=== PATIENT | female | born 2000 | race Caucasian/White ===

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

== ENCOUNTER 2022-04-21 14:20 | Inpatient (IN) | payer SELFPAY ==
[~2022-04-21 14:20] MED LIST changes: +CEPH500 PO
[2022-04-21 15:05] LABS: BASOPHILS ABSOLUTE AUTO 0.07 K/mm3 (0.00-0.23); BASOPHILS PERCENT AUTO 0 % (0-2); EOSINOPHILS ABSOLUTE AUTO 0.01 K/mm3 (0.00-0.68); EOSINOPHILS PERCENT AUTO 0 % (0-6); Hematocrit 40.3 % (33.0-51.0); Hemoglobin 13.1 g/dL (11.5-16.0); IMMATURE GRAN ABSOLUTE AUTO 0.28 K/mm3 (0.00-0.10); IMMATURE GRAN PERCENT AUTO 1 % (0-1); LYMPHOCYTES ABSOLUTE AUTO 1.63 K/mm3 (0.84-5.20); LYMPHOCYTES PERCENT AUTO 6 % (21-46); MONOCYTES ABSOLUTE AUTO 1.33 K/mm3 (0.16-1.47); MONOCYTES PERCENT AUTO 5 % (4-13); Mean Corpuscular HGB 27.3 pg (26.0-34.0); Mean Corpuscular HGB Conc 32.5 g/dL (31.5-36.5); Mean Corpuscular Volume 84 fL (80-100); Mean Platelet Volume 9.6 fL (9.1-12.4); NEUTROPHILS ABSOLUTE AUTO 24.42 K/mm3 (1.96-9.15); NEUTROPHILS PERCENT AUTO 88 % (41-73); Platelet Count 298 K/mm3 (150-400); RDW Coefficient Variation 12.9 % (11.7-14.2); RDW Standard Deviation 39.3 fL (35.1-46.3); Red Blood Cell Count 4.79 M/mm3 (3.80-5.20); White Blood Cell Count 27.74 K/mm3 (4.00-11.30)
[2022-04-21 15:21] LABS: Alanine Aminotransfer (ALT/SGP 40 U/L (12-78); Albumin, Blood 3.3 g/dL (3.4-5.0); Albumin/Globulin Ratio 0.8 (0.8-1.8); Alk Phos 88 U/L (50-136); Anion Gap 5 mmol/L (6-16); Aspartate Aminotrans (AST/SGOT 34 U/L (12-37); Beta HCG, Quantitative, Serum <1 mIU/mL (0-3); Bilirubin, Total 0.7 mg/dL (0.1-1.0); Blood Urea Nitrogen 9 mg/dL (8-24); Bun/Creatinine Ratio 13.1 (12.0-20.0); CO2, Blood 26 mmol/L (21-32); Calcium, Blood 8.7 mg/dL (8.5-10.1); Chloride, Blood 99 mmol/L (98-108); Creatinine, Blood 0.69 mg/dL (0.40-1.00); Globulin, Blood 4.3 g/dL (2.2-4.0); Glomerular Filtration Rate 125 (60-); Glucose, Blood 98 mg/dL (70-99); Sodium, Blood 130 mmol/L (136-145); Total Protein, Blood 7.6 g/dL (6.4-8.2)
[2022-04-21 15:52] LABS: Influenza A, PCR NEGATIVE (NEGATIVE); Influenza B, PCR NEGATIVE (NEGATIVE); Resp Syncytial Virus, PCR NEGATIVE (NEGATIVE); SARS-Cov-2 (COVID-19) PCR, MMC NEGATIVE (NEGATIVE)
[2022-04-21 17:37] LABS: Source, Urine Clean Catch
[2022-04-21 17:57] LABS: Appearance, Urine Hazy (Clear); Bilirubin, Urine Neg (Neg); Blood, Urine 2+ (Neg); Color, Urine Yellow (P-Yellow); Glucose Qualitative, Urine Neg (Neg); Ketones, Urine 2+ (Neg); Leukocyte Esterase, Urine 1+ (Neg); Nitrite, Urine Pos (Neg); Protein, Urine 3+ (Neg); Urobilinogen, Urine 2+ (Normal)
[2022-04-21 18:14] LABS: Bacteria Many /hpf; Mucus Heavy (0-Heavy); Red Blood Cells, Urine 0-2 /hpf (0-2); Squamous Epithelial Cells Mod /hpf (Few)
[2022-04-21 18:49] LABS: U Amphetamine Screen DETECTED; U Barbituate Screen Not Detected; U Benzodiazapine Screen Not Detected; U Buprenorphine Screen Not Detected; U Cannabinoids Screen Not Detected; U Cocaine Screen Not Detected; U Methadone Screen Not Detected; U Methamphetamine Screen DETECTED; U Opiates Screen Not Detected; U Oxycodone Screen Not Detected; U Phencyclidine Screen Not Detected; U Propoxyphene Screen Not Detected
--- NOTE | 2022-04-21 22:41 | NUR ---
ARRIVAL PT ARRIVED TO THE UNIT IN NO DISTRESS. VSS, HYPOTENSION AND TACHYCARDIA NOTED. PT ASYMPTOMATIC, IV FLUIDS INFSING. PARTNER ARRIVED TO BE AT BEDSIDE, INFORMED OF BEHAVIOR POLICY AND EXPECTATIONS. GIVEN PERMISSION TO STAY AT BEDSIDE LONG THE PT IS OKAY WITH IT AND NO ISSUES ARISE. ADMISSION COMPLETED. THE PATIENT IS CURRENTLY SLEEPING, IN NO DISTRESS. PATIENT AND PARTNER EDUCATED ON HOW TO USE THE CALL LIGHT. BED ALARM ON FOR SAFETY.
--- NOTE | 2022-04-22 05:09 | NUR ---
PT NEW ADMIT TO THE FLOOR, SEE PREVEIOUS NOTE. HYPOTENTION NOTED ON PTS VS, HOSPITALIST CALLED AND WAS GIVEN AN ORDER FOR 500 ML BOLUS AND THEN TO CONTINUE MAITENENCE FLUIDS AT 100 MLS/HR. PLAN TO REEVALUATE AFTER THE BOLUS. PT SLEPT ON AND OFF T/O THE NIGHT. PT REMAINED INCONTINENT T/O THE NIGHT AND REFUSED TO GET OOB THIS AM TO USE THE BATHROOM, THEREFORE ATTENDS WERE CHANGED IN THE BED. ATTENDS NOTED TO BE FULLY SATURATED WITH YELLOW FOUL URINE. PT TOLLERATED PO INTAKE T/O THE NIGHT W/O N/V/D. MEDICATED FOR BACK PAIN WITH TORADOL. TELE IN PLACE, PT STARTED THE NIGHT BEING TACHYCARDIAC AND IS NOW SR 80'S. THE PATIENT IS CURRENTLY SLEEPING, PARTNER AT BEDSIDE, BED ALARM ON FOR SAFETY, CALL LIGHT IN REACH.
[2022-04-22 05:16] LABS: BASOPHILS ABSOLUTE AUTO 0.05 K/mm3 (0.00-0.23); BASOPHILS PERCENT AUTO 0 % (0-2); EOSINOPHILS ABSOLUTE AUTO 0.02 K/mm3 (0.00-0.68); EOSINOPHILS PERCENT AUTO 0 % (0-6); Hematocrit 33.1 % (33.0-51.0); Hemoglobin 10.8 g/dL (11.5-16.0); IMMATURE GRAN PERCENT AUTO 1 % (0-1); LYMPHOCYTES ABSOLUTE AUTO 2.27 K/mm3 (0.84-5.20); LYMPHOCYTES PERCENT AUTO 12 % (21-46); MONOCYTES ABSOLUTE AUTO 1.24 K/mm3 (0.16-1.47); MONOCYTES PERCENT AUTO 7 % (4-13); Mean Corpuscular HGB 27.8 pg (26.0-34.0); Mean Corpuscular HGB Conc 32.6 g/dL (31.5-36.5); Mean Corpuscular Volume 85 fL (80-100); Mean Platelet Volume 9.9 fL (9.1-12.4); NEUTROPHILS ABSOLUTE AUTO 15.44 K/mm3 (1.96-9.15); NEUTROPHILS PERCENT AUTO 80 % (41-73); Platelet Count 205 K/mm3 (150-400); RDW Coefficient Variation 12.9 % (11.7-14.2); RDW Standard Deviation 39.8 fL (35.1-46.3); Red Blood Cell Count 3.89 M/mm3 (3.80-5.20); White Blood Cell Count 19.22 K/mm3 (4.00-11.30)
[2022-04-22 05:54] LABS: Albumin, Blood 2.4 g/dL (3.4-5.0); Albumin/Globulin Ratio 0.7 (0.8-1.8); Bilirubin, Total 0.3 mg/dL (0.1-1.0); Bun/Creatinine Ratio 19.1 (12.0-20.0); Calcium, Blood 7.7 mg/dL (8.5-10.1); Creatinine, Blood 0.52 mg/dL (0.40-1.00); Globulin, Blood 3.6 g/dL (2.2-4.0); Potassium, Blood 3.4 mmol/L (3.5-5.5)
--- NOTE | 2022-04-22 06:06 | NUR ---
BP MANAGEMENT CALL PLACED TO HOSPITALIST ABPUT PTS BP OF 82/42, MAP 63 AND PULSE OF 82. PT HAS BECOME LETHARGIC AND ONLY RESPONDS TO BEING SHAKEN AND TALKED LOUDLY TO. ORDER OBTAINED FOR ANOTHER BOLUS OF 250 ML LR, AND KCL 20 MEQ TO BE INFUSED AFTER THE LR BOLUS. HOSPITALIST REQUESTED FOR BP TO BE MANUALLY RECHECKED AND TO BE UPDATED ON BP AFTER THE BOLUS.
[2022-04-22 07:32] LABS: Base Excess Venous -0.6 mmol/L; Bicarbonate Venous 23.9 mmol/L (24.0-30.0); PCO2 Venous 42.1 mmHg (38-42); pH Blood Venous 7.38 (7.34-7.37)
--- NOTE | 2022-04-22 09:04 | NUR ---
PT PULLED IV AND GOT HERSELF INTO THE SHOWER. PT MICHAEL PO, ALERT & ORIENTED X4, VOIDING WELL/BM, AMB SBA FOR IV LINE, UP TO CHAIR FOR BREAKFAST, VSS/RA. BOYFRIEND AT BEDSIDE. TELEPHONE CALL WITH HOSPITALIST TO INFORM THAT PT REP SHE WILL BE LEAVING AMA WHEN SHE FINISHES WITH SHOWER. NO NEW ORDERS RECEIVED.
--- NOTE | 2022-04-22 10:45 | NUR ---
PT SIGNED A TREATMENT CONTRACT FOR BEHAVIORS
--- NOTE | 2022-04-22 11:03 | NUR ---
HOSPITALIST BEDSIDE, WILL PUT IN ORDERS FOR DISCHARGE
[2022-04-22] MEDS ORDERED: DOXY100 PO (11:33)
[2022-04-22] MEDS ORDERED: CEFD300 PO (11:33)
--- NOTE | 2022-04-22 13:00 | NUR ---
DISCHARGE SUMMARY PT A&OX4, VSS/RA, MICHAEL PO, VOIDING WELL, AMB INDEPENDENT IN ROOM/UP TO CHAIR/SHOWERED, PULLED IV AND GOT HERSELF INTO THE SHOWERED/BRUSHED TEETH AND DRESSED SELF. PT WAS VERBALLY AGRESSIVE AND YELLING OFF/ON - INITIALLY PT WOULD CALM DOWN, BUT BECAME UNCONTROLLABLE AND PATIENT ADVOCATE/ LEATHER POLISHER/SECURITY SIGNED BEHAVIOR CONTRACT WITH PT, AND THEN HOSPITALIST DC'D ON ORAL MEDS (FAXED TO [facility]). DC INS PROVIDED TO PT, PT REP UNDERSTANDING THE NEED TO TAKE MEDS TO CONTINUE TREATMENT. PT REF KDUR EVEN AFTER EDU THAT K WAS LOW AND MED TREATMENT NEEDED/ORDERED. ONCE PT WAS IN WC TO BE TAKEN OUT WITH ALL PERSONAL POSSESSIONS/DC PACKET TO GO HOME WITH FRIEND, PT APOLOGIZED FOR HER BEHAVIOR.
== END 2022-04-22 11:45 | disposition home or self-care (01) | DRG 871 ==
LOC: ER 14:20 → SURS 20:18
PROVIDERS: Emergency Medicine; Family Medicine; Physician Assistant; ADMIT Internal Medicine
DX: A41.9 Sepsis, unspecified organism (principal); J18.9 Pneumonia, unspecified organism; E87.29 Other acidosis; N12 Tubulo-interstitial nephritis, not specified as acute or chronic; E87.1 Hypo-osmolality and hyponatremia; F15.10 Other stimulant abuse, uncomplicated; Z20.822 Contact with and (suspected) exposure to COVID-19; B96.20 Unspecified Escherichia coli [E. coli] as the cause of diseases classified elsewhere; F17.210 Nicotine dependence, cigarettes, uncomplicated; Z79.2 Long term (current) use of antibiotics
CPT/HCPCS: 0241U; 36415; 71046; 74177; 80053; 81001; 82803; 83605; 83690; 83880; 84702; 85025; 87086; 87186; 96361; 96365-59; 96366; 96375; 99285-25; A9270; J0456; J0696; J1200; J1885; J3480; J7030; J7050; J7120; P9612; Q9967

== ENCOUNTER 2024-01-10 17:21 | Inpatient (IN) | payer SELFPAY ==
[~2024-01-10] VITALS: Ht 167.6 cm; Wt 72.2 kg
[~2024-01-10 17:21] MED LIST changes: +CEFD300 PO; +DOXY100 PO
[2024-01-10 17:34] VITALS: BP 123/72
[2024-01-10 19:22] VITALS: BP 110/63
[2024-01-10 22:31] LABS: U Amphetamine Screen DETECTED; U Barbituate Screen Not Detected; U Benzodiazapine Screen Not Detected; U Buprenorphine Screen Not Detected; U Cannabinoids Screen Not Detected; U Cocaine Screen Not Detected; U Methadone Screen Not Detected; U Methamphetamine Screen DETECTED; U Opiates Screen Not Detected; U Oxycodone Screen Not Detected; U Phencyclidine Screen Not Detected
--- NOTE | 2024-01-10 23:00 | NUR ---
THIS RN CALLED BY CPS WORKER LAURA WOLFE. THIS RN GAVE [facility] WORKER HISTORY OF PT- PT BROUGHT IN BY AMBULANCE DUE TO NEIGHBOR CALLING 911 AFTER SEING PT'S BELLY GROW AND PT HUNCHED OVER IN PAIN. PT DOES NOT BELIEVE THAT SHE IS PREGANANT.PT AND BOYFRIEND KRISTIE ARE HOMELESS BUT STAYING ON FRIENDS COUCH FOR LAST MONTH. PT'S BOYFRIEND THINKS SHE LAST USED METH 2 DAYS AGO. PT HAS POSITIVE URINE TOX TODAY FOR METH AND AMPHETAMINES. KRISTIE'S SISTER- MANPREET STATED THAT SHE WOULD BE WILLING TO TAKE BABY BUT ISNT SURE IF SHE WOULD WANT TO IF BABY ISNT BLAN[place]. PT UNSURE IF KRISTIE IS FOB. CASE KOFFI WANTS TO BE CALLED ONCE BABY IS BORN.
[2024-01-10] MEDS ORDERED: OxyCODONE 5 mg/Acetamin 325 mg TABLET PO PRN (23:05)
[2024-01-10] MEDS ORDERED: Promethazine HCl 25 MG Tab PO PRN (23:05)
[2024-01-10 23:17] LABS: Bacterial Vaginosis PCR Negative (NEGATIVE); Candida glabrata-krusei, PCR NOT DETECTED (NOT DETECT)
[2024-01-10 23:18] LABS: BASOPHILS ABSOLUTE AUTO 0.01 K/mm3 (0.00-0.23); BASOPHILS PERCENT AUTO 0 % (0-2); EOSINOPHILS ABSOLUTE AUTO 0.03 K/mm3 (0.00-0.68); EOSINOPHILS PERCENT AUTO 0 % (0-6); Hematocrit 29.7 % (33.0-51.0); Hemoglobin 9.7 g/dL (11.5-16.0); IMMATURE GRAN ABSOLUTE AUTO 0.05 K/mm3 (0.00-0.10); IMMATURE GRAN PERCENT AUTO 1 % (0-1); LYMPHOCYTES ABSOLUTE AUTO 1.97 K/mm3 (0.84-5.20); LYMPHOCYTES PERCENT AUTO 22 % (21-46); MONOCYTES ABSOLUTE AUTO 0.83 K/mm3 (0.16-1.47); MONOCYTES PERCENT AUTO 9 % (4-13); Mean Corpuscular HGB 25.2 pg (26.0-34.0); Mean Corpuscular HGB Conc 32.7 g/dL (31.5-36.5); Mean Corpuscular Volume 77 fL (80-100); Mean Platelet Volume 10.3 fL (9.1-12.4); NEUTROPHILS ABSOLUTE AUTO 5.99 K/mm3 (1.96-9.15); NEUTROPHILS PERCENT AUTO 68 % (41-73); Platelet Count 232 K/mm3 (150-400); RDW Coefficient Variation 13.5 % (11.7-14.2); Red Blood Cell Count 3.85 M/mm3 (3.80-5.20); White Blood Cell Count 8.88 K/mm3 (4.00-11.30)
[2024-01-10 23:29] LABS: Candida Group, PCR DETECTED (NOT DETECT)
[2024-01-10 23:44] LABS: Source, Urine Clean Catch
[2024-01-10 23:51] LABS: Bilirubin, Urine Neg (Neg); Blood, Urine 4+ (Neg); Glucose Qualitative, Urine Neg (Neg); Ketones, Urine Neg (Neg); Leukocyte Esterase, Urine 1+ (Neg); Nitrite, Urine Neg (Neg); Protein, Urine 3+ (Neg); Specific Gravity, Urine 1.025 (1.003-1.022); Urobilinogen, Urine NORM (Normal)
[2024-01-11 00:02] LABS: Appearance, Urine Hazy (Clear); Bacteria Many /hpf; Color, Urine Yellow (P-Yellow); Red Blood Cells, Urine 50-100 /hpf (0-2); Squamous Epithelial Cells Few /hpf (Few)
[2024-01-11] MEDS ORDERED: Methylergonovine Maleate 0.2MG / ML 1ML Amp IM PRN (00:30)
[2024-01-11] MEDS ORDERED: Penicillin G Potassium 5,000,000 UNITS in NS 250 ML IV ONE (00:30)
[2024-01-11] MEDS ORDERED: Oxytocin 10 Unit / ML Vial IM PRN (00:30)
[2024-01-11] MEDS ORDERED: Misoprostol 200 MCG Tab PR PRN (00:30)
[2024-01-11] MEDS ORDERED: Lactated Ringer's 1,000 ML IV SCH ×2 (00:30)
[2024-01-11] MEDS ORDERED: Ondansetron HCl 2 MG / ML 2ML Vial IV PRN (00:30)
[2024-01-11] MEDS ORDERED: Acetaminophen 500 MG Tab PO PRN (00:30)
[2024-01-11] MEDS ORDERED: Lactated Ringer's 1,000 ML IV PRN (00:30)
[2024-01-11] MEDS ORDERED: Misoprostol 200 MCG Tab BC PRN (00:30)
[2024-01-11] MEDS ORDERED: FentaNYL 2mcg/ml-Bup 0.1% Epd 250 ML EPI PRN (00:30)
[2024-01-11] MEDS ORDERED: FentaNYL Citrate 50 MCG/ML 2 ML Injection IV PRN (00:30)
[2024-01-11] MEDS ORDERED: Carboprost Tromethamine 250 MCG/ML 1ML Amp IM PRN (00:30)
[2024-01-11] MEDS ORDERED: ePHEDrine Sulfate 50 MG/ML 1ML Injection XX PRN (00:30)
[2024-01-11] MEDS ORDERED: OXYTOCIN/RINGER'S LACTATE 500 ML IV PRN (00:30)
[2024-01-11] MEDS ORDERED: Calcium Carbonate 500 MG Tab Chew PO PRN (00:35)
[2024-01-11] MEDS ORDERED: Tranexamic Acid 100 ML IV PRN (00:45)
[2024-01-11 01:28] VITALS: BP 109/53
[2024-01-11] MEDS ORDERED: Fluconazole 100 MG Tab PO ONE (01:50)
--- NOTE | 2024-01-11 04:13 | NUR ---
PT HAS BEEN UNABLE TO PARTICIPATE IN ADMISSION SCREENING QUESTIONS INCLUDING SUICIDE SCREEN DUE TO PAIN AND THEN SLEEPING. STAFF MAINTAINING LINE OF SIGHT OBSERVATION OF PATIENT UNTIL SCREEN CAN BE COMPLETED. SO AT BEDSIDE.
[2024-01-11 04:41] VITALS: BP 110/66
[2024-01-11] MEDS ORDERED: Penicillin G Potassium 2,500,000 UNITS in Dextrose 5% 100 ML IV SCH (05:00)
--- NOTE | 2024-01-11 12:25 | NUR ---
BRIANA FROM [facility] CALLED. THEY RECEIVED A REPORT FROM THE LEGAL SECRETARY YESTERDAY. BRIANA SAID THEY CAN'T OPEN THE CASE UNTIL THE BABY IS BORN, BUT WOULD LIKE TO DOCUMENT THAT SHE'S AND HAVING SOME MENTAL HEALTH WELL SUBSTANCE ABUSE ISSUES CURRENTLY. THE REPORT NUMBER FOR THIS IS [id number]. THE CASE WILL BE CLOSED UNTIL THE PATIENT DELIVERS AND [facility] WILL NEED TO BE CALLED AGAIN ONCE BABY IS DELIVERED AND THEY WILL ASSIGN IT THEN.
[2024-01-11 14:28] VITALS: BP 104/63
--- NOTE | 2024-01-11 15:28 | NUR ---
CONSULTS DR FAIR CAME IN AND DID A PSYCH CONSULT. NO REPORT SEEN AT THIS TIME AND NO ORDERS RECEIVED. JORGE A LPN RN IS COMING DOWN NOW TO TALK WITH PATIENT BEFORE SHE GOES HOME. WONDERLY REVIEWED ULTRASOUND AND MARY BETH 17 SO WITH NO FLUID SEEN PT CONSIDERED NOT RUPTURED. CPS VERY INVOLVED TODAY AND BRIANA, NANI AND LAURA HAVE ALL CALLED IN REGARDS TO THIS PATIENT BEING VERY CONCERNED. UPDATED THAT SHE IS NOT IN LABOR AND WILL BE DISCHARGED HOME TONIGHT OR TOMORROW.
--- NOTE | 2024-01-11 16:34 | NUR ---
SEE GE NOTES FOR MOST OF THE DAY. PT CONTINUES TO SLEEP ALL DAY WITH LITTLE TO NO INTERACTION. KRISTIE FINISHED TALKING WITH SWING TYPE LATHE OPERATOR JORGE A.
--- NOTE | 2024-01-11 17:54 | NUR ---
PT ALERT AND OREINTATED FOR THE FIRST TIME TODAY. SHE ASKED POLITELY FOR SOME RANCH FOR HER SALAD WHICH IS HER FIRST INTERACTION WITH ME. PT STATES SHE DOES WANT TO GO HOME NOW SO KRISTIE IS CALLING AROUND TO GET THEM A RIDE. I EXPLAINED THAT FOLD SKIVER WOULD COME BACK IF SHE WAS READY TO TALK WITH HIM YET SINCE SHE WAS ASKING ABOUT PLACES TO STAY TONIGHT. PT DECLINES AND SAYS SHE WILL NOT TALK TO HIM. PT DID WELL SITTING UP EATING HER DINNER AND THEN STARTED FALL ASLEEP AGAIN HALF WAY THROUGH. IV DC WITH TIP INTACT. LABOR PRECAUTIONS DISCUSSED AND KRISTIE VERBALIZES UNDERSTANDING ON WHEN TO COME BACK TO THE HOSPITAL. [facility] AND DR SPENCER CARD GIVEN AND STRONGLY URGED THEM TO CALL TOMORROW TO SET UP APPOINTMENTS THIS WEEK AND EVERY WEEK UNTIL DELIVERY WHICH HE SAID DIAL A RIDE WOULD TAKE THEM TO APPOINTMENTS. KRISTIE STATES HE DOESNT HAVE ANY QUESTIONS OR CONCERNS.
--- NOTE | 2024-01-11 18:28 | NUR ---
DISCHARGE BLANCA AND KRISTIE CAME OUT OF ROOM AND STATES THEY ARE READY TO GO AND THEIR RIDE IS ON THEIR WAY. BLANCA IS NOW MAKING EYE CONTACT AND HAVING A CONVERSATION WITH ME FOR THE FIRST TIME. STATES SHE WILL CALL [facility] TOMORROW TO SET UP AN APPOINTMENT AND LABOR PRECAUTIONS DISCUSSED AGAIN ON WHEN TO COME BACK TO HOSPITAL. PT DOES STILL DECLINE MEDICATION FOR HER YEAST INFECTION AND DECLINES TO WAIT TO GET ANOTHER SET OF VITAL. DISCHARGED HOME. KRISTIE DID REITERATE THAT JORGE A PRECISE WINDER WILL BE CALLING THEM TOMORROW TO CHECK IN AND SETTING UP INSURANCE.
[2024-01-13 08:57] LABS: HEPATITIS B SURFACE ANTIBODY 20.23 IU/L
[2024-01-13 10:33] LABS: HEPATITIS B SURFACE ANTIGEN Negative (Negative)
[2024-01-13 10:48] LABS: HIV 1,2 COMBO ANTIGEN/ANTIBODY Negative (Negative)
== END 2024-01-11 18:19 | disposition home or self-care (01) | DRG 832 ==
LOC: OBS 17:21 → BC 17:21 → OBS 23:04 → BC 23:09
PROVIDERS: ADMIT Obstetrics & Gynecology
DX: O99.343 Other mental disorders complicating pregnancy, third trimester (principal); F23 Brief psychotic disorder; O99.323 Drug use complicating pregnancy, third trimester; Z59.01 Sheltered homelessness; F15.14 Other stimulant abuse with stimulant-induced mood disorder; Z3A.36 36 weeks gestation of pregnancy
CPT/HCPCS: 36415; 59025; 76805; 76815; 81001; 85025; 86592; 86762; 86850; 86900; 86901; 86920; 87340; 87389; 87481; 87661; 87801; A9270; G0378; J2540; J7050; J7120